=== PATIENT | male | born 1975 | race Two or more races ===

== ENCOUNTER 2018-08-03 00:24 | Emergency (ER) | payer MEDICAID ==
[~2018-08-03 00:24] MED LIST: ACET-1156 PO; BIOT50006 PO; CHOL500021 OR; HYDR12.56 PO; LISI40TA PO
== END 2018-08-03 01:02 | disposition left against medical advice (07) ==
LOC: ER 00:31
DX: R10.9 Unspecified abdominal pain (principal); Z53.21 Procedure and treatment not carried out due to patient leaving prior to being seen by health care provider

== ENCOUNTER 2019-11-12 05:50 | Inpatient (IN) | payer MEDICAID ==
[~2019-11-12] VITALS: Ht 167.6 cm; Wt 91.0 kg
[2019-11-12 06:28] LABS: Basophils # (auto) 0 10 ^3/uL (0-0.2); Basophils % (auto) 0.3 % (0.0-2.0); Eosinophils # (auto) 0.1 10 ^3/uL (0-0.8); Eosinophils % (auto) 0.7 % (0.0-7.0); Hematocrit 45.3 % (41.0-53.0); Hemoglobin 15.7 g/dL (13.5-17.5); Lymphocytes # (auto) 0.6 10 ^3/uL (0.4-5.4); Lymphocytes % (auto) 6.9 % (10.0-50.0); Mean Corpuscular Hemoglobin 29.5 pg (28.0-32.0); Mean Corpuscular Hgb Conc. 34.6 g/dL (32.0-36.0); Mean Corpuscular Volume 85.4 fL (80.0-100.0); Monocytes # (auto) 0.2 10 ^3/uL (0-1.3); Monocytes % (auto) 1.9 % (0.0-12.0); Neutrophils # (auto) 7.6 10 ^3/uL (1.6-8.6); Neutrophils % (auto) 90.2 % (37.0-80.0); Platelet Count (auto) 286 10^3/uL (140-450); Red Cell Distribution Width 12.9 % (11.8-14.3); White Blood Cell 8.4 10^3/uL (4.4-10.8)
[2019-11-12 06:42] LABS: INR 0.99 (0.9-1.15); Partial Thromboplastin Time 28.3 sec (23.64-32.05)
[2019-11-12 06:46] LABS: Urine Bacteria FEW /hpf (None Seen); Urine Blood Negative /uL (Negative); Urine Hyaline Cast FEW /lpf (0 - 2); Urine Mucus FEW (None Seen); Urine Specific Gravity 1.024 (1.001-1.035); Urine WBC 16 /hpf (0 - 3)
[2019-11-12 06:50] LABS: Albumin 4.1 g/dL (3.4-5.0); Calcium 9.8 mg/dL (8.5-10.1); Magnesium 1.9 mg/dL (1.6-2.6)
[2019-11-12] MEDS ORDERED: SODIUM CHLORIDE 0.9% 1,000 ML IV ONE (06:50)
[2019-11-12] MEDS ORDERED: SODIUM CHLORIDE 0.9% 500 ML IVB ONE (06:50)
[2019-11-12 06:54] LABS: BUN/Creatinine Ratio 12.3; Bilirubin, Total 0.8 mg/dL (0.2-1.0); Total Protein 8.4 g/dL (6.4-8.2)
[2019-11-12] MEDS ORDERED: MORPHINE SULFATE 4 MG/ML SYR/VIAL IV ONE (07:00)
[2019-11-12] MEDS ORDERED: cefTRIAXone 1GM/50ML D5W 50 ML IV ONE ×2 (08:15→11:15)
[2019-11-12] MEDS ORDERED: cefTRIAXone SOD 1,000 MG VL ONE (08:18)
[2019-11-12] MEDS: PROMETHAZINE HCL 25 MG/ML 1ML IV PRN ×2 (08:22→16:24)
[2019-11-12] MEDS ORDERED: SODIUM CHLORIDE 0.9% 1,000 ML IV SCH (11:06)
[2019-11-12] MEDS ORDERED: ONDANSETRON HCL 4 MG/2 ML VIAL IV PRN (11:15)
[2019-11-12] MEDS ORDERED: FAMOTIDINE 20 MG TAB PO ONE ×2 (11:15→11:30)
[2019-11-12] MEDS ORDERED: HYDROcodone-ACET 5/325MG TAB PO PRN (11:15)
[2019-11-12] MEDS ORDERED: ACETAMINOPHEN 500 MG TAB PO PRN (11:15)
[2019-11-12] MEDS ORDERED: MORPHINE SULF INJ 2 MG/ML SYRINGE 1ML IV PRN (11:15)
[2019-11-12] MEDS: TAMSULOSIN HYDROCHLORIDE 0.4 MG CAP PO SCH ×2 (11:18→18:10)
--- NOTE | 2019-11-12 12:13 | NUR ---
Telemetry admit from ER ADIELFRANCISCO admitted to [facility] unit after SBAR received. Patient oriented to GABY PASTOR RN primary RN, unit, room, bed, and unit policies regarding patient care and visiting hours. Patient weighed by bedscale and encouraged to call if they need something. All questions and concerns addressed, patient verbalized understanding.
--- NOTE | 2019-11-12 14:30 | NUR ---
PAIN patient complaining of acute abdominal/back pain rated 6/10. Per patient pain started on 11/07/19 and has been constant since. Will medicate patient per doctors orders.
[2019-11-12] MEDS: SODIUM CHLORIDE 0.9% 1,000 ML IV SCH ×2 (14:42→21:13)
--- NOTE | 2019-11-12 15:30 | NUR ---
RE: Pain Patient received [place] 5 1 tablet PO at 1439. Reassessment- per patient pain is 0/10
--- NOTE | 2019-11-12 16:00 | NUR ---
PT own medication at bedside. Patient refusing to send own medication to pharmacy. Patient was educated on why medications can not remain at bedside. Patient states, " I'm a grown adult, and if you tell me not to take them, I won't. You don't have to take them away from me that's weird. What if someone changes them, or spits on them". This RN informed patient that medications were going to be placed in a bag that was going to be sealed in front of patient for security, and that bag integrity should remain intact until discharge. Patient continues to refuse medications being removed from bedside, per patient he will try to see if his can come pick them up.
[2019-11-12 16:33] VITALS: BP 115/77
[2019-11-12 17:00] VITALS: BP 129/79
[2019-11-12] MEDS: DOCUSATE SOD 100 MG CAP PO SCH (21:13)
[2019-11-12 21:33] VITALS: BP 132/83
[2019-11-13 04:47] VITALS: BP 142/88
[2019-11-13] MEDS: SODIUM CHLORIDE 0.9% 1,000 ML IV SCH ×3 (06:19→21:33)
--- NOTE | 2019-11-13 07:35 | NUR ---
Opening note Assumed care of Patient. No distress noted. No shortness of breath. Discussed Plan of care with patient. Patient verbalized understanding. No questions at this time. Bed in lowest position. Side rails up times 2. Call light within reach. Will continue to monitor patient.
[2019-11-13] MEDS: cefTRIAXone 1GM/50ML D5W 50 ML IV SCH (08:28)
[2019-11-13 09:00] VITALS: BP 154/90
--- NOTE | 2019-11-13 09:40 | NUR ---
Charge nurse at bedside Patient stated he wanted to speak with the charge nurse. Patient verbalized concern about when he would see a doctor or the urologist. Charge Kirit explained Plan of care to patient. Kirit answered all of the patients questions and concerns. Patient verbalized understanding. No further questions at this time. Will continue to monitor.
[2019-11-13] MEDS ORDERED: cloNIDine HCL 0.1 MG TAB PO PRN (10:15)
[2019-11-13] MEDS: FAMOTIDINE 20 MG TAB PO SCH (10:20)
[2019-11-13] MEDS: DOCUSATE SOD 100 MG CAP PO SCH ×2 (10:21→21:33)
[2019-11-13] MEDS ORDERED: MANNITOL FTV 25% 12.5 GM/50 ML 50 ML IV ONE (11:15)
--- NOTE | 2019-11-13 11:28 | NUR ---
MAEGAN Chaparro at bedside Discussing plan of care with patient and this RN. New orders received, will implement new orders. Will continue to monitor Q1 hour and PRN.
--- NOTE | 2019-11-13 11:35 | NUR ---
Dr. Root at bedside Discussing plan of care with patient and this RN. Will continue to monitor Q1 hour and PRN.
[2019-11-13 13:00] VITALS: BP 124/82
--- NOTE | 2019-11-13 13:30 | NUR ---
Urine collected and sent to lab for urine culture
[2019-11-13 16:52] VITALS: BP 133/74
[2019-11-13] MEDS: TAMSULOSIN HYDROCHLORIDE 0.4 MG CAP PO SCH (17:38)
--- NOTE | 2019-11-13 19:20 | NUR ---
Closing Note Report given to shift mechanic RN. No signs or symptoms of distress noted a this time.
--- NOTE | 2019-11-13 19:55 | NUR ---
Opening Shift Note Assumed care of patient, awake and alert. No S/S of distress/SOB or pain. Instructed on POC and to call for assist PRN, will continue to monitor for changes Q1hr and PRN. Bed in low position and call light within reach.
[2019-11-13 22:00] VITALS: BP 159/92
[2019-11-13 22:29] VITALS: BP 160/89
[2019-11-14 05:00] VITALS: BP 147/80
--- NOTE | 2019-11-14 05:33 | NUR ---
patient heart rate reassessed, 59 bpm. patient denies sob distress or pain. patient refused to be back on fluids patient educated on benefits and risks of iv fluids. patient stated " that is just causing my blood pressure to be high" blood pressure reading at 147/80.
[2019-11-14] MEDS: SODIUM CHLORIDE 0.9% 1,000 ML IV SCH ×2 (05:35→09:52)
[2019-11-14 05:41] LABS: Basophils # (auto) 0 10 ^3/uL (0-0.2); Basophils % (auto) 1.2 % (0.0-2.0); Eosinophils # (auto) 0.3 10 ^3/uL (0-0.8); Eosinophils % (auto) 7.6 % (0.0-7.0); Hematocrit 39.3 % (41.0-53.0); Hemoglobin 13.3 g/dL (13.5-17.5); Lymphocytes # (auto) 1.6 10 ^3/uL (0.4-5.4); Mean Corpuscular Hemoglobin 29.4 pg (28.0-32.0); Mean Corpuscular Hgb Conc. 33.9 g/dL (32.0-36.0); Mean Corpuscular Volume 86.5 fL (80.0-100.0); Monocytes # (auto) 0.5 10 ^3/uL (0-1.3); Monocytes % (auto) 13.1 % (0.0-12.0); Neutrophils # (auto) 1.3 10 ^3/uL (1.6-8.6); Neutrophils % (auto) 35.1 % (37.0-80.0); Nucleated Red Blood Cells % 0.1 %; Platelet Count (auto) 235 10^3/uL (140-450); Red Blood Cells 4.54 10^6/uL (4.5-5.90); Red Cell Distribution Width 12.6 % (11.8-14.3); White Blood Cell 3.6 10^3/uL (4.4-10.8)
[2019-11-14 06:00] LABS: BUN/Creatinine Ratio 10.1; Calcium 8.7 mg/dL (8.5-10.1); Potassium 4.3 mmol/L (3.5-5.1)
--- NOTE | 2019-11-14 07:24 | NUR ---
rEPORT GIVEN TO DAYSHIFT RN PATIENT DENIES SOB DISTRESS OR PAIN
[2019-11-14 08:00] VITALS: BP 155/92
--- NOTE | 2019-11-14 08:15 | NUR ---
Patient is requesting for the doctor to come and discharge him right now. Patient states " I am getting sicker staying here, my nose is runny and i want to go home". Will page the MD.
[2019-11-14 09:00] VITALS: BP 155/92
--- NOTE | 2019-11-14 09:01 | NUR ---
MAEGAN Chaparro at bedside
[2019-11-14] MEDS: cefTRIAXone 1GM/50ML D5W 50 ML IV SCH (09:26)
[2019-11-14] MEDS: DOCUSATE SOD 100 MG CAP PO SCH (09:27)
[2019-11-14] MEDS: FAMOTIDINE 20 MG TAB PO SCH (09:27)
[2019-11-14 12:18] VITALS: BP 144/82
--- NOTE | 2019-11-14 12:54 | NUR ---
Discharge instructions given as ordered. Encourage to follow up with PMD as instructed. All questions and concerns addressed. Patient verbalized understanding. Medication reconciliation form completed and copy given to patient. IV removed with catheter intact, pressure dressing applied. Patient ambulated to vehicle with all personal belongings, accompanied by staff . No distress noted at time of departure.
== END 2019-11-14 13:13 | disposition home or self-care (01) | DRG 463 ==
LOC: ER 05:50 → OVERFLOW 05:51 → WEST WING 14:46
PROVIDERS: ADMIT Nurse Practitioner Acute Care; ATTEND Internal Medicine
DX: N13.6 Pyonephrosis (principal); N17.9 Acute kidney failure, unspecified; E66.9 Obesity, unspecified; I10 Essential (primary) hypertension; N13.9 Obstructive and reflux uropathy, unspecified; K59.00 Constipation, unspecified; Z88.3 Allergy status to other anti-infective agents; Z88.8 Allergy status to other drugs, medicaments and biological substances; Z68.32 Body mass index [BMI] 32.0-32.9, adult
CPT/HCPCS: 36415; 71046; 74176; 80048; 80053; 81001; 82150; 83690; 83735; 85025; 85610; 85730; 87086; 96360; 96361; G0378; J0696; J7060

== ENCOUNTER 2019-11-22 19:13 | Inpatient (IN) | payer MEDICAID ==
[~2019-11-22] VITALS: Ht 167.6 cm; Wt 86.6 kg
[~2019-11-22 19:13] MED LIST changes: -ACET-1156 PO; -BIOT50006 PO; -CHOL500021 OR
[2019-11-22 20:25] LABS: Basophils # (auto) 0.1 10 ^3/uL (0-0.2); Basophils % (auto) 1.2 % (0.0-2.0); Eosinophils # (auto) 0.2 10 ^3/uL (0-0.8); Eosinophils % (auto) 2.8 % (0.0-7.0); Hematocrit 39.4 % (41.0-53.0); Hemoglobin 13.3 g/dL (13.5-17.5); Lymphocytes % (auto) 47.1 % (10.0-50.0); Mean Corpuscular Hemoglobin 29.4 pg (28.0-32.0); Mean Corpuscular Hgb Conc. 33.7 g/dL (32.0-36.0); Mean Corpuscular Volume 87.3 fL (80.0-100.0); Monocytes # (auto) 0.4 10 ^3/uL (0-1.3); Monocytes % (auto) 6.6 % (0.0-12.0); Neutrophils # (auto) 2.7 10 ^3/uL (1.6-8.6); Neutrophils % (auto) 42.3 % (37.0-80.0); Nucleated Red Blood Cells % 0.1 %; Platelet Count (auto) 303 10^3/uL (140-450); Red Blood Cells 4.52 10^6/uL (4.5-5.90); White Blood Cell 6.4 10^3/uL (4.4-10.8)
[2019-11-22 20:33] LABS: Albumin 3.8 g/dL (3.4-5.0); Anion Gap 8 (5-15); Blood Urea Nitrogen 15 mg/dL (7-18); Calcium 8.7 mg/dL (8.5-10.1); Carbon Dioxide 26 mmol/L (21-32); Chloride 107 mmol/L (98-107); Glucose 96 mg/dL (74-106); Magnesium 1.9 mg/dL (1.6-2.6); Potassium 3.5 mmol/L (3.5-5.1); Sodium 141 mmol/L (136-145)
[2019-11-22 20:38] LABS: Alanine Aminotransferase 52 U/L (16-61); Alkaline Phosphatase 82 U/L (45-117); Aspartate Aminotransferase 33 U/L (15-37); Bilirubin, Total 0.6 mg/dL (0.2-1.0); GFR African American 66 mL/min; GFR Non-African American 54 mL/min; Total Protein 7.3 g/dL (6.4-8.2)
[2019-11-22 20:45] LABS: INR 1.13 (0.9-1.15); Partial Thromboplastin Time 29.6 sec (23.64-32.05)
[2019-11-22] MEDS ORDERED: ACETAMINOPHEN 325 MG TAB PO PRN (21:15)
[2019-11-22] MEDS ORDERED: ONDANSETRON HCL 4 MG/2 ML VIAL IV PRN (21:15)
[2019-11-22] MEDS ORDERED: hydrALAZINE HCL 20 MG/ML VL IV PRN (21:15)
[2019-11-22] MEDS ORDERED: TEMAZEPAM 15 MG CAP PO PRN (21:15)
[2019-11-22] MEDS ORDERED: NITROGLYCERIN 0.4 MG SL TAB SL PRN (21:45)
[2019-11-22] MEDS ORDERED: MORPHINE SULF INJ 2 MG/ML SYRINGE 1ML IV PRN (21:45)
[2019-11-22] MEDS: FAMOTIDINE 20 MG TAB PO SCH (22:00)
[2019-11-22 22:11] LABS: Urine Bacteria NONE SEEN /hpf (None Seen); Urine Blood Negative /uL (Negative); Urine Specific Gravity 1.004 (1.001-1.035); Urine WBC <1 /hpf (0 - 3)
[2019-11-22 22:20] LABS: Alcohol, Urine < 3.0 mg/dL (0-5); Amphetamine Screen, Urine NEGATIVE (NEGATIVE); Barbiturate Scree,Urine NEGATIVE (NEGATIVE); Benzodiazephine Screen, Urine NEGATIVE (NEGATIVE); Cannabinoid Screen, Urine NEGATIVE (NEGATIVE); Cocaine Screen, Urine NEGATIVE (NEGATIVE); Opiate Scree,Urine NEGATIVE (NEGATIVE); Phencyclidine Screen, Urine NEGATIVE (NEGATIVE)
[2019-11-22 23:40] VITALS: BP 157/74
[2019-11-23] VITALS: BP 167/98
[2019-11-23] MEDS ORDERED: CLON0.1T PO (01:09)
[2019-11-23] MEDS ORDERED: TAMS0.4C36 PO (01:09)
[2019-11-23] MEDS ORDERED: KETO10TA PO (01:09)
[2019-11-23 05:00] VITALS: BP 167/94
[2019-11-23 05:54] LABS: Calcium 8.8 mg/dL (8.5-10.1); Magnesium 2.1 mg/dL (1.6-2.6); Potassium 3.5 mmol/L (3.5-5.1)
[2019-11-23 05:57] LABS: BUN/Creatinine Ratio 10.6
[2019-11-23] MEDS: FAMOTIDINE 20 MG TAB PO SCH (08:59)
[2019-11-23 09:00] VITALS: BP 156/91
[2019-11-23] MEDS ORDERED: LISINOPRIL 20 MG TAB PO SCH (10:00)
[2019-11-23] MEDS ORDERED: amLODIPine BESYLATE 5 MG TAB PO SCH (11:45)
[2019-11-23 13:00] VITALS: BP 152/87
[2019-11-23] MEDS ORDERED: IRBE300T46 PO (14:17)
[2019-11-23 14:19] VITALS: BP 143/109
== END 2019-11-23 14:30 | disposition home health service (06) | DRG 201 ==
LOC: ER 19:13 → TELE 19:14 → TELE-WESTW 19:14 → UNDOADMIN 19:14 → TELE-WESTW 23:12 → TELE 23:12 → TELE-WESTW 23:30
PROVIDERS: ADMIT Nurse Practitioner; ATTEND Nurse Practitioner
DX: R00.1 Bradycardia, unspecified (principal); E78.5 Hyperlipidemia, unspecified; F41.9 Anxiety disorder, unspecified; I10 Essential (primary) hypertension; R07.89 Other chest pain; N40.0 Benign prostatic hyperplasia without lower urinary tract symptoms; Z82.49 Family history of ischemic heart disease and other diseases of the circulatory system; Z87.442 Personal history of urinary calculi; Z83.3 Family history of diabetes mellitus; Z88.1 Allergy status to other antibiotic agents; Z91.041 Radiographic dye allergy status; T46.5X5A Adverse effect of other antihypertensive drugs, initial encounter
CPT/HCPCS: 36415; 71045; 80048; 80053; 80307; 81001; 83735; 83880; 84443; 84484; 85025; 85610; 85730; 87081; 93005; 93306; G0378